=== PATIENT | male | born 1945 | race Caucasian/White ===

== ENCOUNTER 2018-03-01 02:26 | Outpatient (CLI) | payer MEDICARE, SELFPAY ==
[2018-03-01 09:18] LABS: ALT 41 U/L (12-78); AST 32 U/L (15-37); Albumin 3.6 g/dL (3.4-5.0); Alkaline Phosphatase 87 U/L (46-116); Anion Gap 4.8 mmol/L (3-11); BUN 16 mg/dL (7-18); Bilirubin, Total 0.6 mg/dL (0.2-1.0); CO2 30.2 mmol/L (21.0-32.0); CREATININE 1.16 mg/dL (0.70-1.30); Calcium 8.7 mg/dL (8.5-10.1); Chloride 105 mmol/L (98-107); Cholesterol 265 mg/dL (50-200); Glucose 101 mg/dL (70-100); HDL Cholesterol 53 mg/dL (40-60); LDL CHOLESTEROL 167 mg/dL (<100); Potassium 4.6 mmol/L (3.5-5.1); Sodium 140 mmol/L (136-145); Total Protein 7.2 g/dL (6.4-8.2); Triglyceride 208 mg/dL (30-150)
== END 2018-03-01 02:46 ==
PROVIDERS: PCP Family Medicine; Visit Provider Family Medicine
DX: E78.5 Hyperlipidemia, unspecified (principal)
CPT/HCPCS: 36415; 80053; 80061; 83721

== ENCOUNTER 2018-10-15 20:20 | Emergency (ER) | payer MEDICARE, SELFPAY ==
--- NOTE | 2018-10-15 20:25 | ED.GENADUL_ITS ---
Discharge Plan Disposition Patient Disposition: HOME Condition: Good Discharge Details Chief Complaint: Orthopedic Clinical Impression: Metacarpophalangeal joint pain of right hand Primary Care Provider: Sugar Lott ED Provider: Yang Drew Meds and New Rx's Prescriptions: New ibuprofen 600 mg tablet 600 mg PO TID Qty: 15 RF: 0 Continued multivitamin tablet 1 tab PO DAILY RF: 0 atorvastatin 10 mg tablet 10 mg PO DAILY Qty: 90 RF: 4 sildenafil [Viagra] 100 MG tablet 100 mg PO DAILY PRNQty: 10 RF: 4 Discharge Instructions Additional Instructions: Wear splint for comfort for the next few days. Continue to use ice. Ibuprofen as directed for anti-inflammatory effect. Follow-up with primary care on Wednesday as scheduled. Return to the emergency department if you develop fevers, chills, increasing pain/redness/swelling. Referrals: Sugar Lott MD, [place] [Primary Care Provider] - Medical Decision Making Patient presents with right hand and wrist pain. The wrist actually seems better to him and is minimally painful. He has normal range of motion of the wrist. Some mild tenderness over the dorsal aspect. His hand is swollen and tender in the third MCP joint. If the joint is isolated I am able to extend the finger without pain so does not appear to be a tenosynovitis. He has pain with active range of motion of that joint. He has some discomfort with passive range of motion but has passive range of motion present. There is no erythema or warmth to the area. There were no other joints involved. He does not have a history of gout. I do not think that this is an infected joint. He has had symptoms now for almost 5 days. He has been doing a lot of yard work in his chest may be inflammation related to overuse/arthritis. Will get x-rays and start ibuprofen. Will hold off on laboratory work-up as I think this is likely to get better with nonsteroidals and he has follow-up with primary care on Wednesday. Right hand/wrist x-ray with nothing acute per my review. Preliminary radiology read pending. Patient has received ibuprofen. I am placing him in an aluminum form finger splint to rest that third MCP joint. Hoping that anti-inflam matories work over the next day or 2. Follow-up with primary care on Wednesday as scheduled. Return to ED if he develops fever, increasing pain/redness/swelling, or other concerns. HPI General Mode of arrival: ambulatory . Date/Time Provider Initiated Documentation: 10/15/18 20:23 . Limitations to Documentation: no limitations . Information obtained by: patient . HPI Narrative: Patient presents to ED with increasing right hand pain and swelling. Patient started to have discomfort in the hand and wrist on the right after doing a lot of yard work. Wrist is better at this point. Hand seems to be worse. Pain and swelling seems to be mostly around the third MCP joint. There is no associated erythema. There is no fevers or chills. There are no other arthralgias or myalgias. He does not have a previous history of gout or rheumatoid arthritis. He is right-hand dominant. He has not taken anything for the pain but has been icing it. He has an appointment to see primary care on Wednesday. He is concerned because he is having difficulty using that hand because of pain and discomfort. Related Data Home Medications Medication Instructions Recorded Confirmed sildenafil [Viagra] 100 mg PO DAILY PRN #10 tab-cap 01/21/16 10/15/18 atorvastatin 10 mg tablet 10 mg PO DAILY #90 tab 03/15/18 10/15/18 multivitamin tablet 1 tab PO DAILY 03/15/18 10/15/18 ibuprofen 600 mg PO TID #15 tab 10/15/18 Previous Rx's Medication Instructions Recorded atorvastatin 10 mg tablet 10 mg PO DAILY #90 tab 03/15/18 ibuprofen 600 mg PO TID #15 tab 10/15/18 Allergies Allergy/AdvReac Type Severity Reaction Status Date / Time aspirin Allergy Intermediate HIVES Unverified 03/15/18 11:01 Review of Systems Constitutional Denies chills, Denies fever(s), Denies malaise and Denies weakness Musculoskeletal Denies myalgias, Reports joint swelling, Reports limited range of motion and Reports stiffness Integumentary/Breasts Denies erythema and Denies rash Neurologic Denies weakness [facility] Medical History Shoulder pain (Chronic 04/29/07) Right hip pain (Chronic 12/07/16) Polyp of colon (Chronic) Malignant neoplasm of skin (Chronic) Lumbar and sacral arthritis (Chronic 12/08/16) Lumbago with sciatica, right side (Chronic) Hyperlipidemia (Chronic 04/14/13) Foraminal stenosis of lumbar region (Chronic 03/01/17) Surgical History S/P hernia repair (Resolved) S/P rotator cuff repair (Resolved) Family History Mother No problems noted. Father Heart disease Stroke Brother No problems noted. Brother No problems noted. Brother No problems noted. Grandfather No problems noted. Grandfather No problems noted. Grandmother Stroke Grandmother No problems noted. Social History Smoking/Tobacco Use Status: Former Tobacco Use Alcohol Intake: current Drug use: Never Substance use type: does not use Household members: spouse What type of physical activity do you participate in: none and other Details: QUITE ACTIVE Do you feel safe at home: Yes Do you feel safe in your relationship?: Yes Exam Const General: cooperative, comfortable and no acute distress Orientation: alert and oriented x3 Skin General skin exam: no erythema Rashes: no rashes Neuro General: alert, oriented x3 and no focal motor deficits Sensory Exam: no sensory deficits noted Extrem Right upper extremity: wrist Details: normal to inspection, tenderness Location: of the dorsal wrist, normal ROM and normal vascular exam; no swelling, no unusual warmth and no ecchymosis and hand Details: neuromotor exam normal, neurosensory exam abnormal, tendon exam normal, tenderness Location: of the 3rd digit Location: at the MCP joint, abnormal ROM of finger and swelling Location: of the 3rd digit Location: at the MCP joint; no unusual warmth and no ecchymosis Procedures Orthopedic Splinting/Casting Injury #1: Side: right Upper Extremity Injury Location: finger Upper Extremity Immobilizer: aluminum form splint
[2018-10-15 20:26] VITALS: BP 122/77; PULSE 68; RESP 18; TEMP 36.6; O2SAT 98
--- NOTE | 2018-10-15 20:46 | DI.RAD_ITS ---
SYMPTOMS/DIAGNOSIS: PAIN AND SWELLING RIGHT HAND: No fracture or dislocation is seen. There are mild to moderate degenerative changes of the interphalangeal joints of the fingers as well as first MTP joint. Degenerative changes are also noted at the scaphoid multangular and first carpal metacarpal joint. IMPRESSION: Degenerative changes. No evidence of fracture or bony erosions.
[2018-10-15] MEDS: Ibuprofen 600 MG TAB PO (21:11)
--- NOTE | 2018-10-15 21:37 | DI.VRAD_ITS ---
EXAM: XR Right Hand Complete, 3 or more Views EXAM DATE/TIME: 10/15/2018 8:47 PM CLINICAL HISTORY: 73 years old, male; Signs and symptoms; Other: Right hand pain, nki TECHNIQUE: Imaging protocol: XR Right hand. Views: 3 or more views COMPARISON: No relevant prior studies available. FINDINGS: Bones/joints: No fracture or dislocation. No blastic or lytic lesions. Mild interphalangeal osteoarthritis involving the DIP joints of the second through fifth fingers with joint space narrowing in slight marginal spurring at the fifth DIP joint. Mild degenerative joint space narrowing in the STT joint. No chondrocalcinosis. Soft tissues: No gross soft tissue swelling or calcification. Other findings: Carpal relationships are normal. Normal mineralization. No marginal erosions. No periostitis. IMPRESSION: 1. No acute osseous injuries are identified. 2. 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 Dictated and Authenticated by: Héctor Guzman MD. Ordering:FRANCIS Soria MD
== END 2018-10-15 21:46 | disposition home or self-care (01) ==
PROVIDERS: Emergency Provider Emergency Medicine; PCP Family Medicine
DX: M25.541 Pain in joints of right hand (principal); R22.31 Localized swelling, mass and lump, right upper limb
CPT/HCPCS: 99283; 73130; 99282

== ENCOUNTER 2019-03-29 02:22 | Outpatient (CLI) | payer MEDICARE, SELFPAY ==
[2019-03-29 11:38] LABS: ALT 34 U/L (16-63); AST 24 U/L (15-37); Albumin 3.8 g/dL (3.4-5.0); Alkaline Phosphatase 52 U/L (46-116); Anion Gap 9.3 mmol/L (3-11); BUN 18 mg/dL (7-18); Bilirubin, Total 0.6 mg/dL (0.2-1.0); CO2 27.7 mmol/L (21.0-32.0); CREATININE 1.09 mg/dL (0.70-1.30); Calcium 9.1 mg/dL (8.5-10.1); Calculated LDL 98 mg/dL; Chloride 106 mmol/L (98-107); Cholesterol 176 mg/dL (50-200); Glucose 96 mg/dL (70-100); HDL Cholesterol 62 mg/dL (40-60); Potassium 4.8 mmol/L (3.5-5.1); Sodium 143 mmol/L (136-145); Total Protein 6.9 g/dL (6.4-8.2); Triglyceride 83 mg/dL (30-150)
== END 2019-03-29 02:42 ==
PROVIDERS: PCP Family Medicine; Visit Provider Family Medicine
DX: E78.5 Hyperlipidemia, unspecified (principal)
CPT/HCPCS: 36415; 80053; 80061

== ENCOUNTER 2019-10-24 01:53 | Outpatient (CLI) | payer MEDICARE, SELFPAY ==
[2019-10-24 10:46] LABS: ALT 42 U/L (16-63); AST 35 U/L (15-37); Albumin 3.8 g/dL (3.4-5.0); Alkaline Phosphatase 63 U/L (46-116); Anion Gap 6.3 mmol/L (3-11); BUN 15 mg/dL (7-18); Bilirubin, Total 0.5 mg/dL (0.2-1.0); CO2 28.7 mmol/L (21.0-32.0); CREATININE 1.11 mg/dL (0.70-1.30); Calcium 9.3 mg/dL (8.5-10.1); Chloride 105 mmol/L (98-107); Glucose 93 mg/dL (74-106); Potassium 4.5 mmol/L (3.5-5.1); Sodium 140 mmol/L (136-145); Total Protein 7.2 g/dL (6.4-8.2)
== END 2019-10-24 02:13 ==
PROVIDERS: PCP Family Medicine; Visit Provider Family Medicine
DX: E78.5 Hyperlipidemia, unspecified (principal); M75.81 Other shoulder lesions, right shoulder; M25.511 Pain in right shoulder
CPT/HCPCS: 20610; 36415; 80053; 99214; J1040

== ENCOUNTER 2019-10-24 11:23 | Outpatient (CLI) | payer MEDICARE, SELFPAY ==
--- NOTE | 2019-10-24 11:00 | DI.RAD_ITS ---
EXAM: XR SHOULDER RT COMPLETE 2+V CLINICAL HISTORY: pain TECHNIQUE: 2D digital imaging was performed. COMPARISON: CR RIGHT SHOULDER COMPLETE from 04/18/2013 FINDINGS: There has been a previous distal clavicular resection. There is some spurring of the undersurface of the acromion as well as glenoid. Humeral head is normally position. There is some spurring at the lesser tuberosity. No tendon or joint space calcifications are seen. IMPRESSION: Postsurgical and degenerative changes.
== END 2019-10-24 11:43 ==
PROVIDERS: PCP Family Medicine; Referring Provider Family Medicine; Visit Provider Orthopaedic Surgery
DX: M25.511 Pain in right shoulder (principal); M75.81 Other shoulder lesions, right shoulder; M19.011 Primary osteoarthritis, right shoulder; E78.5 Hyperlipidemia, unspecified
CPT/HCPCS: 20610; 36415; 80053; 99214; 73030; J1040

== ENCOUNTER → 2020-04-24 09:43 | Outpatient (BNVA) | payer MEDICARE, SELFPAY | PROVIDERS: PCP Family Medicine; Referring Provider Family Medicine; Visit Provider Orthopaedic Surgery | DX: M75.81 Other shoulder lesions, right shoulder (principal) | CPT/HCPCS: 20610; 99213; J1040 ==

== ENCOUNTER 2020-08-06 01:49 | Outpatient (CLI) | payer MEDICARE, SELFPAY ==
--- NOTE | 2020-08-06 14:26 | DI.RAD_ITS ---
EXAM: XR LUMBAR SPINE COMPLETE CLINICAL HISTORY: LBP and rt sciatica, M54.41. TECHNIQUE: 2D digital imaging was performed. COMPARISON: CR LUMBAR SPINE COMPLETE from 07/16/2009 FINDINGS: There are 5 lumbar type vertebral bodies. There is normal alignment. No spondylolysis or spondyloli sthesis. There are endplate osteophytes throughout the lumbar spine. There is disc space narrowing and vacuum disc at L5-S1. Degenerative changes of the facets are seen from L4-5 through L5-S1. No a cute fractures or subluxations are present. IMPRESSION: Moderate degenerative changes in the lumbar spine. DATA REPOSITORY: RADIATION DOSE DELIVERED:
== END 2020-08-06 02:09 ==
PROVIDERS: PCP Family Medicine; Visit Provider Family Medicine
DX: M54.41 Lumbago with sciatica, right side (principal); M51.17 Intervertebral disc disorders with radiculopathy, lumbosacral region
CPT/HCPCS: 72110

== ENCOUNTER 2020-08-28 14:31 | Outpatient (CLI) | payer MEDICARE, SELFPAY ==
--- NOTE | 2020-08-28 14:43 | DI.RAD_ITS ---
EXAM: XR SHOULDER RT COMPLETE 2+V CLINICAL HISTORY: right shoulder pain. TECHNIQUE: 2D digital imaging was performed. COMPARISON: CR XR SHOULDER RT COMPLETE 2+V from 10/24/2019 FINDINGS: There is no evidence fracture or dislocation or soft mild degenerative changes in the glenohumeral an d AC joints. No os acromiale. No abnormal soft tissue calcifications. Bone density is age-appropri ate. IMPRESSION: DATA REPOSITORY: RADIATION DOSE DELIVERED:
== END 2020-08-28 14:32 | disposition home or self-care (01) ==
LOC: DIORS 14:31
PROVIDERS: PCP Family Medicine; Referring Provider Family Medicine; Visit Provider Student in an Organized Health Care Education/Training Program
DX: S43.431A Superior glenoid labrum lesion of right shoulder, initial encounter (principal); X58.XXXA Exposure to other specified factors, initial encounter; M75.81 Other shoulder lesions, right shoulder; M75.41 Impingement syndrome of right shoulder; M75.21 Bicipital tendinitis, right shoulder; Z98.890 Other specified postprocedural states
CPT/HCPCS: 99213; 73030

== ENCOUNTER 2020-09-09 02:17 | Outpatient (CLI) | payer MEDICARE, SELFPAY ==
--- NOTE | 2020-09-09 08:25 | DI.MRI_ITS ---
EXAM: MR UPPER JOINT RT WO CLINICAL HISTORY: r shoulder pain,M75.41,M75.21,S43.431A,IMPINGEMENT SYNDROME,TENDINITIS,SLAP TECHNIQUE: Multiplanar multisequence MRI of the shoulder was performed. COMPARISON: CR XR SHOULDER RT COMPLETE 2+V from 08/28/2020 FINDINGS: MARROW:There is no evidence of fracture, Hill-Sachs deformity, nor ominous osseous lesions. ROTATOR CUFF MECHANISM: AC JOINT/ACROMIUM: There is significant degenerative changes at the AC joint level.. Impingement leeanne dent at this level. The undersurface of the acromion is flat. There is no evidence of os acromiale. Supraspinatus: There is tendinitis-tendinosis signal abnormality in the supraspinatus. Also small ar ea of full-thickness tearing. No retraction musculotendinous junction. There is fluid in the overly ing subacromial bursa. Infraspinatus: Partial-thickness tearing evident on the articular surface side. Teres Minor: Intact. No evidence of tear nor muscle atrophy. Subscapularis/anterior cuff: There is partial thickness tearing anterior to the lesser tuberosity. N o full-thickness tear. No abnormal intraosseous signal in the lesser tuberosity. BICEPS TENDON: Located within the intertubercular groove. Some increased signal noted with a in the intra-articular aspect of the biceps tendon at its insertion. LABRUM: There is increased signal within the superior labrum posterior to the biceps insertion site. In addition, there is tearing of the anterior labrum evident. Posterior labrum appears intact. There is no evidence of paralabral cyst. LABROLIGAMENTOUS/CAPSULAR COMPLEX: There is no evidence of avulsion of the anterior-inferior labrum, capsule, inferior glenohumeral liga ment complex nor disruption of the scapular periosteum to suggest the presence of a Bankart lesion. GLENOHUMERAL JOINT: There are moderate osteoarthritic degenerative changes involving the [place] car tilage and small osteophyte on the inferior articular surface of the humeral head. There is some deg enerative subarticular cysts in the lateral humeral head. There are no degenerative subarticular cys ts in the osseous glenoid. No evidence of capsular tear. The inferior glenohumeral ligament is inta ct. QUADRILATERAL SPACE: No evidence of mass in the region of the axillary nerve and dorsal circumflex hu meral vessels. Visualized triceps muscle at this level appears unremarkable. IMPRESSION: 1. Multilevel abnormalities in the rotator cuff mechanism including small full-thickness tear of the supraspinatus (no retraction of the musculotendinous junction), partial-thickness tearing of the infr aspinatus, and partial thickness tearing of the subscapularis tendon just anterior to the greater tub erosity. 2. Abnormal signal within the intra-articular biceps tendon. There is anterior labral tearing superi ese at and slightly below the biceps attachment site. There is no Bankart lesion. There is also mo le increased intrasubstance signal within the superior labrum posterior to the biceps tendon insertio n site. There is no evidence of paralabral cyst. 3. There are moderate degenerative changes in the glenohumeral joint. There is a small glenohumeral joint effusion. There is no obvious loose intra-articular body. DATA REPOSITORY:
== END 2020-09-09 02:37 ==
PROVIDERS: PCP Family Medicine; Visit Provider Student in an Organized Health Care Education/Training Program
DX: M25.511 Pain in right shoulder (principal); M75.41 Impingement syndrome of right shoulder; M75.21 Bicipital tendinitis, right shoulder; S43.431A Superior glenoid labrum lesion of right shoulder, initial encounter; M19.011 Primary osteoarthritis, right shoulder; M25.411 Effusion, right shoulder
CPT/HCPCS: 73221

== ENCOUNTER → 2020-09-24 10:08 | Outpatient (BNVA) | payer MEDICARE, SELFPAY | PROVIDERS: PCP Family Medicine; Referring Provider Family Medicine; Visit Provider Student in an Organized Health Care Education/Training Program | DX: S43.431D Superior glenoid labrum lesion of right shoulder, subsequent encounter (principal); M75.21 Bicipital tendinitis, right shoulder; M75.41 Impingement syndrome of right shoulder; M75.101 Unspecified rotator cuff tear or rupture of right shoulder, not specified as traumatic; X58.XXXD Exposure to other specified factors, subsequent encounter | CPT/HCPCS: 99213 ==

== ENCOUNTER → 2020-12-03 09:24 | Outpatient (BNVA) | payer MEDICARE, SELFPAY | PROVIDERS: PCP Family Medicine; Referring Provider Family Medicine; Visit Provider Student in an Organized Health Care Education/Training Program | DX: S43.431D Superior glenoid labrum lesion of right shoulder, subsequent encounter (principal); S46.011D Strain of muscle(s) and tendon(s) of the rotator cuff of right shoulder, subsequent encounter; M75.21 Bicipital tendinitis, right shoulder; M75.41 Impingement syndrome of right shoulder; X58.XXXD Exposure to other specified factors, subsequent encounter | CPT/HCPCS: 99213 ==

== ENCOUNTER → 2021-08-08 02:03 | Outpatient (CLI) | payer MEDICARE, SELFPAY ==
--- NOTE | 2021-08-08 08:00 | DI.RAD_ITS ---
Exam(s) XR ANKLE LT COMPLETE EXAM: XR ANKLE LT COMPLETE CLINICAL HISTORY: left ankle pain,M25.572. TECHNIQUE: 2D digital imaging was performed. COMPARISON: No exams were available for comparison FINDINGS: There is no evidence of fracture or widening of the mortise. Talar dome unremarkable. There is a sm all bony excrescence seen off the inferior aspect of the lateral malleolus. There is no overlying so ft tissue swelling. This measures 9 x 5 millimeters and is corticated. Remainder of the ankle joint appears unremarkable as does the subtalar joint. Tiny inferior calcaneal spur is noted. There is a lso some calcification in the adjacent plantar fascia. No obvious abnormal thickening of the [place] s tendon. IMPRESSION: No fracture. Small bony excrescence off the inferior aspect of the lateral malleolus but no evidence of acute fracture. Bone density normal. No ominous osseous lesions DATA REPOSITORY: RADIATION DOSE DELIVERED:
== END ==
PROVIDERS: PCP Family Medicine; Visit Provider Family Medicine
DX: M25.572 Pain in left ankle and joints of left foot (principal); M25.772 Osteophyte, left ankle
CPT/HCPCS: 73610

== ENCOUNTER 2021-10-16 03:34 | Outpatient (CLI) | payer MEDICARE, SELFPAY ==
[2021-10-16 09:42] LABS: ALT 47 U/L (16-63); AST 26 U/L (15-37); Alkaline Phosphatase 72 U/L (46-116); BUN 19 mg/dL (7-18); Bilirubin, Total 0.6 mg/dL (0.2-1.0); CREATININE 1.1 mg/dL (0.70-1.30); Calcium 8.9 mg/dL (8.5-10.1); Calculated LDL 130 mg/dL (<100); Chloride 106 mmol/L (98-107); Cholesterol 221 mg/dL (<200); Glucose 99 mg/dL (74-106); HDL Cholesterol 52 mg/dL (40-60); Potassium 4.6 mmol/L (3.5-5.1); Sodium 143 mmol/L (136-145); Total Protein 7.3 g/dL (6.4-8.2); Triglyceride 199 mg/dL (<150)
== END 2021-10-16 03:35 | disposition home or self-care (01) ==
LOC: LBO 03:34
PROVIDERS: PCP Family Medicine; Visit Provider Family Medicine
DX: E78.5 Hyperlipidemia, unspecified (principal)
CPT/HCPCS: 36415; 80053; 80061

== ENCOUNTER → 2021-11-21 11:58 | Outpatient (CLI) | payer MEDICARE, SELFPAY ==
--- NOTE | 2021-11-21 10:45 | DI.RAD_ITS ---
Exam(s) XR HIP RT COMPLETE AP PELVIS EXAM: XR HIP RT COMPLETE AP PELVIS CLINICAL HISTORY: M25.551 - RT hip pain; known DDD in lumbar. TECHNIQUE: 2D digital imaging was performed of the right hip. Two images were obtained. AP pelvis a nd lateral right hip views were obtained. COMPARISON: CR RT HIP COMPLETE AP PELVIS from 12/08/2016 FINDINGS: BONES: No acute fracture is present. No bony destructive lesion is seen. JOINTS: No dislocation present. Stable mild degenerative changes in the hips is noted with joint spac e narrowing. SOFT TISSUE: Normal. IMPRESSION: Stable mild degenerative changes of the right hip. DATA REPOSITORY: RADIATION DOSE DELIVERED:
== END ==
PROVIDERS: PCP Family Medicine; Visit Provider Family Medicine
DX: M25.551 Pain in right hip (principal); M16.11 Unilateral primary osteoarthritis, right hip
CPT/HCPCS: 73502

== ENCOUNTER 2022-01-01 03:29 | Outpatient (CLI) | payer MEDICARE, SELFPAY | END 2022-01-01 03:30 | disposition home or self-care (01) | LOC: LOS 03:32 | PROVIDERS: PCP Family Medicine; Visit Provider Family Medicine | DX: N40.0 Benign prostatic hyperplasia without lower urinary tract symptoms (principal) | CPT/HCPCS: 36415; 84153 ==

== ENCOUNTER 2022-10-30 20:43 | Outpatient (REF) | payer MEDICARE, SELFPAY | END 2022-10-30 20:44 | disposition home or self-care (01) | LOC: LBN 20:43 | PROVIDERS: PCP Family Medicine; Visit Provider Physician Assistant | DX: L08.89 Other specified local infections of the skin and subcutaneous tissue; L29.8 Other pruritus | CPT/HCPCS: 87070; 87205 ==

== ENCOUNTER 2022-12-17 02:36 | Outpatient (CLI) | payer MEDICARE, SELFPAY ==
[2022-12-17 12:13] LABS: ALT 33 U/L (16-63); AST 26 U/L (15-37); Albumin 3.9 g/dL (3.4-5.0); Alkaline Phosphatase 70 U/L (46-116); Anion Gap 7.6 mmol/L (3-11); BUN 16 mg/dL (7-18); Bilirubin, Total 0.8 mg/dL (0.2-1.0); CO2 28.4 mmol/L (21.0-32.0); CREATININE 1.1 mg/dL (0.70-1.30); Calcium 8.9 mg/dL (8.5-10.1); Calculated LDL 85 mg/dL (<100); Chloride 106 mmol/L (98-107); Cholesterol 173 mg/dL (<200); Estimated GFR 70.01 (mL/min/1.73m2); Glucose 103 mg/dL (74-106); HDL Cholesterol 73 mg/dL (40-60); Potassium 4.5 mmol/L (3.5-5.1); Sodium 142 mmol/L (136-145); Total Protein 7.2 g/dL (6.4-8.2); Triglyceride 75 mg/dL (<150)
== END 2022-12-17 02:37 | disposition home or self-care (01) ==
LOC: LBO 02:36
PROVIDERS: PCP Family Medicine; Visit Provider Family Medicine
DX: E78.5 Hyperlipidemia, unspecified (principal)
CPT/HCPCS: 36415; 80053; 80061

== ENCOUNTER 2022-12-24 08:25 | Outpatient (RCR) | payer MEDICARE, SELFPAY ==
--- NOTE | 2022-12-24 08:15 | HOLTER_ITS ---
APPROVED REPORT Conclusion This is a 48-hour Holter monitor ordered for symptoms of lightheadedness Rhythm throughout was sinus with an average heart rate of 61. Minimum was 47, maximum 108 There were rare isolated atrial and ventricular ectopic beats There was no atrial fibrillation no high-grade AV block no SVT no pauses greater than 3 seconds Patient symptoms were reported which had no correlation to any dysrhythmia
== END 2022-12-28 23:59 | disposition home or self-care (01) ==
LOC: CARDOPNVT 08:25
PROVIDERS: PCP Family Medicine; Visit Provider Family Medicine
DX: R42 Dizziness and giddiness (principal)
CPT/HCPCS: 93225

== ENCOUNTER 2022-12-30 15:42 | Outpatient (RCR) | payer MEDICARE, SELFPAY | END 2023-01-28 23:59 | disposition home or self-care (01) | LOC: CARDOPNVT 15:42 | PROVIDERS: PCP Family Medicine; Visit Provider Family Medicine | DX: R42 Dizziness and giddiness (principal) | CPT/HCPCS: 93226 ==

== ENCOUNTER 2023-04-06 09:33 | Outpatient (CLI) | payer MEDICARE, SELFPAY ==
--- NOTE | 2023-04-06 09:15 | DI.RAD_ITS ---
Exam(s) XR SHOULDER RT COMPLETE 2+V EXAM: XR SHOULDER RT COMPLETE 2+V CLINICAL HISTORY: shoulder pain. TECHNIQUE: 2D digital imaging was performed. COMPARISON: CR XR SHOULDER RT COMPLETE 2+V from 08/28/2020 FINDINGS: Two views. No evidence of fracture or dislocation nor abnormal soft tissue calcifications in the subacromial spa ce. Subacromial space height is normal. There are no obvious degenerative changes in the glenohumer al joint and mild degenerative changes in the AC joint. Bone density normal. No osseous lesions leeanne dent. IMPRESSION: No significant radiograph findings on these two views of the right shoulder. DATA REPOSITORY: RADIATION DOSE DELIVERED:
== END 2023-04-06 09:34 | disposition home or self-care (01) ==
LOC: DIORS 09:33
PROVIDERS: PCP Family Medicine; Referring Provider Family Medicine; Visit Provider Student in an Organized Health Care Education/Training Program
DX: M25.519 Pain in unspecified shoulder (principal); S46.211A Strain of muscle, fascia and tendon of other parts of biceps, right arm, initial encounter; X58.XXXA Exposure to other specified factors, initial encounter
CPT/HCPCS: 99213; 73030

== ENCOUNTER 2024-02-29 03:38 | Outpatient (CLI) | payer MEDICARE, SELFPAY ==
[2024-02-29 13:05] LABS: ALT 35 U/L (16-63); AST 29 U/L (15-37); Albumin 3.6 g/dL (3.4-5.0); Alkaline Phosphatase 76 U/L (46-116); Anion Gap 8.5 mmol/L (3-11); BUN 14 mg/dL (7-18); Bilirubin, Total 0.78 mg/dL (0.2-1.0); CO2 28.5 mmol/L (21.0-32.0); CREATININE 1.1 mg/dL (0.70-1.30); Calcium 9.2 mg/dL (8.5-10.1); Calculated LDL 90 mg/dL (<100); Chloride 104 mmol/L (98-107); Cholesterol 178 mg/dL (<200); Estimated GFR 69.57 (mL/min/1.73m2); Glucose 98 mg/dL (74-106); HDL Cholesterol 70 mg/dL (40-60); Sodium 141 mmol/L (136-145); Total Protein 7.4 g/dL (6.4-8.2); Triglyceride 94 mg/dL (<150)
[2024-02-29 18:46] LABS: PSA, Screening 1.1 ng/mL (<=6.5)
[2024-03-01 11:05] LABS: Hepatitis C Ab w Rflx HCV PCR Negative (Negative)
== END 2024-02-29 03:39 | disposition home or self-care (01) ==
LOC: LOS 03:38
PROVIDERS: PCP Family Medicine; Visit Provider Family Medicine
DX: Z12.5 Encounter for screening for malignant neoplasm of prostate (principal); Z11.59 Encounter for screening for other viral diseases; I10 Essential (primary) hypertension
CPT/HCPCS: 36415; 80053; 80061; 84153; 86803

== ENCOUNTER 2025-02-22 10:55 | Outpatient (CLI) | payer MEDICARE, SELFPAY ==
[2025-02-22 14:35] LABS: ALT 35 U/L (16-63); AST 27 U/L (15-37); Albumin 3.7 g/dL (3.4-5.0); Alkaline Phosphatase 78 U/L (46-116); Anion Gap 5.0 mmol/L (3-11); BUN 14 mg/dL (7-18); Bilirubin, Total 0.4 mg/dL (0.2-1.0); CO2 31.0 mmol/L (21.0-32.0); Calcium 9.4 mg/dL (8.5-10.1); Chloride 106 mmol/L (98-107); Estimated GFR 69.14 (mL/min/1.73m2); GGT 55 U/L (15-85); Glucose 96 mg/dL (74-106); Potassium 4.2 mmol/L (3.5-5.1); Sodium 142 mmol/L (136-145); Total Protein 7.4 g/dL (6.4-8.2)
== END 2025-02-22 10:56 | disposition home or self-care (01) ==
PROVIDERS: PCP Family Medicine; Referring Provider Family Medicine; Visit Provider Family Medicine
DX: K76.9 Liver disease, unspecified (principal); I10 Essential (primary) hypertension; Z23 Encounter for immunization
CPT/HCPCS: 36415; 80053; 82977

== ENCOUNTER 2025-04-05 13:31 | Outpatient (REF) | payer MEDICARE, SELFPAY ==
--- NOTE | 2025-04-05 11:00 | SKI_PTH ---
PATIENT: Antoni Huitron LOC: [facility]#:[id number] AGE/SX: 79/M ROOM: RE04/05/[address]: Sugar Lott MD, [place] : 1945 BED: DIS: 04/05/2025 SPEC #: [id number] RECD: 04/05/25 18:06 STATUS: GONZALO REPa #: [id number] SRINIVAS: 04/05/25 11:[address]: Sugar Lott DEPT: Surgical Specimen RECD BY: Jennifer Rodriguez Tissues: 1 - SKIN BIOPSY(SHAVE/PUNCH) Procedures: SKIN LEVEL 4 Comments: [id number]
== END 2025-04-05 13:32 | disposition home or self-care (01) ==
LOC: NCHCN 13:31
PROVIDERS: PCP Family Medicine; Visit Provider Family Medicine
DX: L82.1 Other seborrheic keratosis (principal)
CPT/HCPCS: 88305